=== PATIENT | male | born 1965 | race Caucasian/White ===

== ENCOUNTER 2024-10-06 10:00 | Emergency (ER) | payer OTHER ==
[2024-10-06] MEDS: Acetaminophen 500 MG Tab PO ONE (11:12)
[2024-10-06] MEDS: Lidocaine 1% 20 ML MDV INJECT ONE (12:15)
== END 2024-10-06 12:20 | disposition home or self-care (01) ==
LOC: JP.ED 10:00
DX: S62.631B Displaced fracture of distal phalanx of left index finger, initial encounter for open fracture (principal); S62.633B Displaced fracture of distal phalanx of left middle finger, initial encounter for open fracture; S62.635B Displaced fracture of distal phalanx of left ring finger, initial encounter for open fracture; I10 Essential (primary) hypertension; Z79.890 Hormone replacement therapy; Z79.899 Other long term (current) drug therapy; W31.2XXA Contact with powered woodworking and forming machines, initial encounter; Y92.019 Unspecified place in single-family (private) house as the place of occurrence of the external cause
CPT/HCPCS: 73120; 99283; A9270

== ENCOUNTER 2025-03-18 19:24 | Emergency (ER) | payer OTHER ==
[2025-03-18] MEDS: EPINEPHrine 1 MG/ML SDV IM ONE ×3 (19:25→22:56)
[2025-03-18] MEDS: methylPREDNISolone Sodium Succinate 125 MG/2 ML SDV IVPUSH ONE (19:29)
[2025-03-18] MEDS: diphenhydrAMINE 50 MG/ML SDV IVPUSH ONE (19:31)
[2025-03-18] MEDS: Ondansetron 4 MG/2 ML SDV IVPUSH ONE (19:46)
[2025-03-18] MEDS: EPINEPHrine 1 MG/ML SDV ONE (22:41)
[2025-03-18] MEDS: Ondansetron 4 MG/2 ML SDV ONE (22:46)
[2025-03-18] MEDS: Sodium Chloride 0.9% 10 ML Syringe FLUSH PRN (22:57)
== END 2025-03-19 00:25 | disposition home or self-care (01) ==
LOC: JP.ED 19:24
DX: T78.2XXA Anaphylactic shock, unspecified, initial encounter (principal); I10 Essential (primary) hypertension; Z79.890 Hormone replacement therapy; Z79.899 Other long term (current) drug therapy
CPT/HCPCS: 96372; 96374; 96375; 99283; J0171; J1200; J1308; J2919; J7620; A9270-GY